=== PATIENT | female | born 1995 | race Hispanic/Latino ===

== ENCOUNTER 2017-08-15 00:51 | Emergency (ER) | payer OTHER, SELFPAY ==
[2017-08-15 02:00] LABS: Absolute Lymphocytes (CBC) 3.1 K/uL (0.7-4.9); Absolute Monocytes 0.7 K/uL (0.1-1.3); Absolute Neutrophil 6.9 K/uL (1.8-8.0); Basophils % 0.8 % (0-1.3); Eosinophils % 1.8 % (0-4.4); Hematocrit 38.9 % (36.0-45.0); Lymphocytes % 28.3 % (15.3-44.8); MCH 28.4 pg (27.0-35.0); MCV 87.4 fL (80-100); MPV 7.4 fL (7.6-11.3); Monocytes % 6.5 % (3.3-12.3); RBC Red Blood Cell Count 4.45 M/uL (3.86-4.86)
[2017-08-15 02:11] LABS: Protime INR 0.99
[2017-08-15 02:18] LABS: Bicarbonate 23 mEq/L (21-31); Glucose Level 104 mg/dL (65-120); Potassium 3.5 mEq/L (3.6-5.0); Sodium Level 140 mEq/L (135-145)
[2017-08-15 02:24] LABS: ALT/SGPT 26 IU/L (10-60); AST/SGOT 29 IU/L (10-42); Albumin 4.4 g/dL (3.2-5.5); Alkaline Phosphatase 113 IU/L (42-121); BUN Blood Urea Nitrogen 13 mg/dL (6-20); Bilirubin Direct 0.1 mg/dL (0-0.2); Bilirubin Total 0.5 mg/dL (0.3-1.2); Protein, Total 8.3 g/dL (6.0-8.3)
[2017-08-15 02:25] LABS: Barbiturates NEGATIVE; Benzodiazepines NEGATIVE; Cocaine NEGATIVE; METHAMPHETAM NEGATIVE; Opiates NEGATIVE; Phencyclidine NEGATIVE; THC Cannibis NEGATIVE
[2017-08-15 02:26] LABS: Alcohol Serum/Plasma 133 mg/dl
[2017-08-15] MEDS ORDERED: LIDOCAINE 1% W/EPI 1:100,000 MDV 50 ML VIAL ONE (02:28)
[2017-08-15] MEDS ORDERED: POTASSIUM 25 MEQ EFFERV TAB ONE (03:56)
[2017-08-15 04:32] LABS: Salicylates Level < 4.0 mg/dl (<30)
[2017-08-15 04:55] LABS: Bicarbonate 24 mEq/L (21-31); Glucose Level 101 mg/dL (65-120); Potassium 3.8 mEq/L (3.6-5.0); Sodium Level 143 mEq/L (135-145)
[2017-08-15 04:57] LABS: BUN Blood Urea Nitrogen 11 mg/dL (6-20)
[2017-08-15 05:05] LABS: Alcohol Serum/Plasma 88 mg/dl
--- NOTE | 2017-08-15 05:42 | EDPHYS ---
Physician Documentation [facility] Name: Camila Milligan Age: 21 yrs Sex: Female : 1995 Arrival Date: 08/15/2017 Time: 00:56 Bed 3 Private MD: ED Physician eCsar Alfred HPI: 08/15 01:30 This 21 yrs old Female presents to ER via Ambulatory with complaints of Wrist cp Injury. 01:30 The patient or guardian reports injury, a laceration, clean. Context: resulted from cp self inflicted. Onset: The symptoms/episode began/occurred just prior to arrival. 01:30 Associated signs and symptoms: Pertinent negatives:. 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 Patient reports she became upset tonight. Denies suicidal or homicidal ideations. EMERGENCY SPECIALIST: 01:53 LMP N/A - control method lp1 Historical: - Allergies: 01:49 No Known Allergies; lp1 - Home Meds: 01:53 Nexplanon implant [Active]; lp1 - PMHx: 01:53 Anxiety; Depression; ADD/ADHD; hypotension; lp1 - PSHx: 01:53 D \T\ C; lp1 - Immunization history:: Last tetanus immunization: up to date. - Social history:: Smoking status: Patient/guardian denies using tobacco. ROS: 01:35 Constitutional: Negative for body aches, chills, fever, poor PO intake. cp 01:35 Eyes: Negative for injury, pain, redness, and discharge, ENT: Negative for injury, cp pain, and discharge, Cardiovascular: Negative for chest pain, palpitations, and edema, Respiratory: Negative for shortness of breath, cough, wheezing, and pleuritic chest pain, Abdomen/GI: Negative for abdominal pain, nausea, vomiting, diarrhea, and constipation. 01:35 Skin: Positive for laceration(s), of the volar surface of left wrist. 01:35 Neuro: Negative for altered mental status, headache, weakness. 01:35 All other systems are negative. Exam: 01:42 Constitutional: The patient appears in no acute distress, alert, awake, non-toxic, well cp developed, well nourished, tearful 01:42 Head/Face: Normocephalic, atraumatic. Eyes: Pupils equal round and reactive to light, cp extra-ocular motions intact. Lids and lashes normal. Conjunctiva and sclera are non-icteric and not injected. Cornea within normal limits. Periorbital areas with no swelling, redness, or edema. ENT: Nares patent. No nasal discharge, no septal abnormalities noted. Tympanic membranes are normal and external auditory canals are clear. Oropharynx with no redness, swelling, or masses, exudates, or evidence of obstruction, uvula midline. Mucous membranes moist. Chest/axilla: Normal chest wall appearance and motion. Nontender with no deformity. No lesions are appreciated. 01:42 Cardiovascular: Rate: tachycardic, Rhythm: regular, Edema: is not appreciated, JVD: is not appreciated. 01:42 Respiratory: the patient does not display signs of respiratory distress, Respirations: normal, no use of accessory muscles, no retractions, no splinting, no tachypnea, labored breathing, is not present, Breath sounds: are clear throughout, no decreased breath sounds, no stridor, no wheezing. 01:42 Abdomen/GI: Inspection: abdomen appears normal, Bowel sounds: active, all quadrants, Palpation: abdomen is soft and non-tender, in all quadrants. 01:42 Back: pain, is absent, ROM is normal. 01:42 Skin: injury, laceration(s), the wound is approximately 4 cm(s), of the volar surface of left wrist, that can be described as clean, linear, with mild bleeding. 01:42 Neuro: Orientation: to person, place \T\ time. Mentation: is normal, Motor: moves all fours, strength is normal, Sensation: no obvious gross deficits, Gait: is steady, at a normal pace, without difficulty. 02:25 ECG was reviewed by the Attending Physician. cp Vital Signs: 01:03 BP 144 / 108; Pulse 107; Resp 20; Pulse Ox 99% on R/A; Weight 68.04 kg; Height 5 ft. 2 aa1 in. (157.48 cm); 01:54 BP 111 / 80 LA Sitting; lp1 02:11 Temp 97.5(O); lp1 04:23 BP 117 / 74 LA Sitting (auto/reg); Pulse 85; Resp 16 S; Pulse Ox 100% on R/A; cc 06:47 BP 109 / 81; Pulse 83; Resp 16; Pulse Ox 99% on R/A; Pain 0/10; lp1 01:03 Body Mass Index 27.44 (68.04 kg, 157.48 cm) aa1 Laceration: 02:52 Wound Repair of 4cm ( 1.6in ) subcutaneous laceration to volar surface of left wrist. cp Linear shaped.. Distal neuro/vascular/tendon intact. Anesthesia: Local anesthetic administered with 3 mls of 1% lidocaine w/ Epi. Wound prep: Moderate cleansing by me, Wound irrigation by me. Skin closed with 1 4-0 Prolene using running sutures. Dressed with Bacitracin, Kerlix. Patient tolerated well. MDM: 01:23 Patient medically screened. cp 02:00 Differential diagnosis: tendon injury, suicidal gesture, simple laceration. cp 03:51 Data reviewed: vital signs, nurses notes, lab test result(s), EKG. cp 08/15 01:26 Order name: Acetaminophen; Complete Time: 05:23 cp 08/15 01:26 Order name: Basic Metabolic Panel; Complete Time: 05:23 cp 08/15 01:26 Order name: CBC with Diff; Complete Time: 02:15 cp 08/15 02:15 Interpretation: Normal except: MCV 87.4; RDW 15.9; MPV 7.4. cp 08/15 01:26 Order name: ETOH Level; Complete Time: 05:23 cp 08/15 01:26 Order name: Hepatic Function; Complete Time: 05:23 cp 08/15 01:26 Order name: PT-INR; Complete Time: 03:14 cp 08/15 01:26 Order name: Ptt, Activated; Complete Time: 03:14 cp 08/15 01:26 Order name: Salicylate; Complete Time: 05:23 cp 08/15 01:26 Order name: Urine Drug Screen; Complete Time: 03:14 cp 08/15 02:10 Order name: Urine Dipstick--Ancillary (enter results) [facility] 08/15 02:10 Order name: Urine --Ancillary (enter results) [facility] 08/15 03:51 Order name: ETOH Level; Complete Time: 05:23 cp 08/15 04:23 Order name: Basic Metabolic Panel; Complete Time: 05:23 EDMS 08/15 01:26 Order name: Urine Test (obtain specimen); Complete Time: 03:06 cp 08/15 01:26 Order name: EKG; Complete Time: 01:27 cp 08/15 01:26 Order name: EKG - Nurse/Tech; Complete Time: 03:06 cp 08/15 01:26 Order name: IV Saline Lock; Complete Time: 02:09 cp 08/15 01:26 Order name: Labs collected and sent; Complete Time: 02:09 cp 08/15 01:26 Order name: Urine Dipstick-Ancillary (obtain specimen); Complete Time: 02:09 cp 08/15 01:26 Order name: Prolene, Sutures; Complete Time: 02:09 cp 08/15 01:26 Order name: Dressing - Wound; Complete Time: 03:06 cp 08/15 01:26 Order name: Gloves, Sterile; Complete Time: 02:09 cp 08/15 01:26 Order name: Setup Suture Tray; Complete Time: 02:08 cp EC:25 Rate is 84 beats/min. Rhythm is regular. OR interval is normal. QRS interval is normal. cp QT interval is normal. T waves are Normal. No ST changes noted. Interpreted by me. Reviewed by me. Administered Medications: 02:48 Drug: Lidocaine-Epinephrine -1%: (1:100,000) 5 ml Volume: 20 ml; Route: Infiltration; lp1 04:15 Drug: Potassium Effervescent Tablet 25 mEq Route: PO; lp1 05:42 Follow up: Response: No adverse reaction lp1 05:41 Drug: Neosporin Ointment 1 application Route: Topical; Site: wound; lp1 05:59 Drug: Ancef 1 grams Route: IVPB; Site: right antecubital; lp1 06:39 Follow up: IV Status: Completed infusion lp1 Disposition: 08/15/17 05:41 Discharged to Home. Impression: Alcohol abuse with intoxication, Major depressive disorder, recurrent, Suicide attempt - upset, arguement. no suicidal thoughts at this time. - Condition is Stable. - Discharge Instructions: Depression, Adult, Laceration Care, Adult, Helping Someone Who is Suicidal, Laceration Care, Adult, [id number], Depression, Adult, [id number]. - Prescriptions for Keflex 500 mg Oral Capsule - take 1 capsule by ORAL route every 6 hours for 7 days; 28 capsule. Motrin IB 200 mg Oral Tablet - take 2 tablet by ORAL route every 6 hours As needed as needed with food; 30 tablet. - Medication Reconciliation Form, Thank You Letter, Antibiotic Education, Prescription Opioid Use form. - Follow up: Private Physician; When: 2 - 3 days; Reason: Recheck today's complaints, Continuance of care, Re-evaluation by your physician. - Problem is new. - Symptoms have improved. Addendum: 08/17/2017 07:14 Co-signature as Attending Physician, Cesar Alfred MD I agree with the assessment and c mayes plan of care. Signatures: Dispatcher [employer] EDOK Page Mari, RN RN aa1 Cesar Alfred MD MD cha Pena, Laura RN RN lp1 Cesar Ramirez PA PA cp Corrections: (The following items were deleted from the chart) 08/15 04:23 04:13 BASIC METABOLIC PANEL+[id number].LAB.BRZ ordered. EDOK EDOK
--- NOTE | 2017-08-15 05:42 | ER ---
Nurse's Notes [facility] Name: Camila Milligan Age: 21 yrs Sex: Female : 1995 Arrival Date: 08/15/2017 Time: 00:56 Bed 3 Private MD: Diagnosis: Alcohol abuse with intoxication;Major depressive disorder, recurrent;Suicide attempt-upset, arguement. no suicidal thoughts at this time Presentation: 08/15 01:03 Presenting complaint: pt presents to ED with laceration to L wrist. Pt crying and aa1 admits to self inflicting her injury but will not release any other information or answer any other questions. Transition of care: patient was not received from another setting of care. Onset of symptoms was August 15, 2017. Care prior to arrival: None. 01:03 Method Of Arrival: Ambulatory aa1 01:03 Acuity: FRANKO 3 aa1 PRIVATE DUTY LPN: 01:53 LMP N/A - control method lp1 Historical: - Allergies: 01:49 No Known Allergies; lp1 - Home Meds: 01:53 Nexplanon implant [Active]; lp1 - PMHx: 01:53 Anxiety; Depression; ADD/ADHD; hypotension; lp1 - PSHx: 01:53 D \\T\\ C; lp1 - Immunization history:: Last tetanus immunization: up to date. - Social history:: Smoking status: Patient/guardian denies using tobacco. Screenin:52 Abuse screen: Denies threats or abuse. Denies injuries from another. Nutritional lp1 screening: No deficits noted. Tuberculosis screening: No symptoms or risk factors identified. 01:55 Fall Risk None identified. lp1 Assessment: 01:15 General: Appears uncomfortable, Behavior is anxious, crying. Pain: Complains of pain in lp1 left wrist Pain currently is 8 out of 10 on a pain scale. Quality of pain is described as burning. Neuro: Level of Consciousness is awake, alert, obeys commands, Oriented to person, place, time, situation. Cardiovascular: Capillary refill < 3 seconds in bilateral fingers toes Patient's skin is warm and dry. Respiratory: Respiratory effort is even, unlabored, Respiratory pattern is regular, symmetrical. 01:15 GI: No signs and/or symptoms were reported involving the gastrointestinal system. : lp1 No signs and/or symptoms were reported regarding the genitourinary system. EENT: No signs and/or symptoms were reported regarding the EENT system. Derm: Wound noted Wound is Laceration to ventral side of wrist. Musculoskeletal: Circulation, motion, and sensation intact. 02:15 Reassessment: Patient appears in no apparent distress at this time. No changes from lp1 previously documented assessment. Patient and/or family updated on plan of care and expected duration. Pain level reassessed. Tech at bedside with patient. General: Behavior is calm. 03:04 Reassessment: Patient resting, eyes closed, respirations unlabored. lp1 04:15 Reassessment: Patient appears in no apparent distress at this time. No changes from lp1 previously documented assessment. Patient and/or family updated on plan of care and expected duration. Pain level reassessed. 05:30 Reassessment: Patient resting, eyes closed, respirations unlabored. lp1 06:30 Reassessment: Patient is alert, oriented x 3, equal unlabored respirations, skin lp1 warm/dry/pink. [place] at bedside. Psych: 01:45 Subjective: Patient's mood is sad, Delusions are denied, Hallucinations are denied lp1 Patient denies harm to others or self; States "I just over reacted, I don't really want to hurt myself"; States having argument with "someone" after drinking a couple beers and got upset. Objective: Patient is cooperative, using poor eye contact, Speech is normal, Affect is appropriate, Patient has mutilated themselves by Patient has laceration to left wrist, states no hx of self mutilation in the past. Interventions: Removed personal items and placed in bag. Patient placed in hospital gown. Searched person for dangerous items. Urine collected and sent for urine drug test. Suicide Risk Assessment: Sad Person Scale: Sex of patient: Female: Score 0 points. Age of patient: Score 1 point if patient 15-34. Depression: Score 1 point if signs of depression are present. Previous Attempt: Score 0 point if patient has not previously attempted suicide. Substance Abuse: Score 0 point if patient does not abuse alcohol or drugs. Rational Thinking: Score 0 point if patient has rational thinking. Social Support: Score 1 point if social support is lacking and/or unavailable. Organized Plan: Score 0 if patient did not have an organized plan in place. Relationship: Score 1 point if patient is , , , or for a single male Chronic Sickness: Score 0 point if patient does not have a chronic illness, debilitating, or severe disorder. TOTAL POINTS: If total points are 3-4, proposed clinical action is close follow-up/consider hospitalization. Safety Checks: Personal items have been removed. Door is open. No visitors are present at this time. Pt denies substance abuse. 06:48 Commitment: [facility] provided list of services to patient. lp1 Vital Signs: 01:03 BP 144 / 108; Pulse 107; Resp 20; Pulse Ox 99% on R/A; Weight 68.04 kg; Height 5 ft. 2 aa1 in. (157.48 cm); 01:54 BP 111 / 80 LA Sitting; lp1 02:11 Temp 97.5(O); lp1 04:23 BP 117 / 74 LA Sitting (auto/reg); Pulse 85; Resp 16 S; Pulse Ox 100% on R/A; cc 06:47 BP 109 / 81; Pulse 83; Resp 16; Pulse Ox 99% on R/A; Pain 0/10; lp1 01:03 Body Mass Index 27.44 (68.04 kg, 157.48 cm) aa1 ED Course: 00:56 Patient arrived in ED. rg2 01:03 Arm band placed on right wrist. Patient placed in an exam room, on a stretcher. aa1 01:04 Triage completed. aa1 01:22 Cesar Ramirez PA is PHCP. cp 01:22 Cesar Alfred MD is Attending Physician. cp 01:46 Mildred Manzanares, MARCELLE is Primary Nurse. lp1 01:54 Patient has correct armband on for positive identification. Call light in reach. Pulse lp1 ox on. NIBP on. 02:00 Safety Checks: Personal items have been removed The door is open or patient has been lp1 placed in a hallway bed/chair. There are no family/friend visitors at this time. 02:00 Inserted saline lock: 22 gauge in right antecubital area, using aseptic technique. By lp1 tech. Rosa 02:15 Safety Checks: Personal items have been removed The door is open or patient has been lp1 placed in a hallway bed/chair. There are no family/friend visitors at this time. 02:30 Safety Checks: Personal items have been removed The door is open or patient has been lp1 placed in a hallway bed/chair. There are no family/friend visitors at this time. 02:45 Safety Checks: Personal items have been removed The door is open or patient has been lp1 placed in a hallway bed/chair. There are no family/friend visitors at this time. 03:00 Safety Checks: Personal items have been removed The door is open or patient has been lp1 placed in a hallway bed/chair. There are no family/friend visitors at this time. 03:01 Assist provider with laceration repair on left wrist that was between 2.6 to 7.5 cm lp1 using sutures. Set up tray. Performed by Cesar JOHNSON. 03:05 Wound care: to laceration located on left wrist was dressed with Neosporin, 4X4s, lp1 Kerlix, By lena Lee. 03:15 Appears to be sleeping. Safety Checks: Personal items have been removed The door is lp1 open or patient has been placed in a hallway bed/chair. There are no family/friend visitors at this time. 03:30 Appears to be sleeping. Safety Checks: Personal items have been removed The door is lp1 open or patient has been placed in a hallway bed/chair. There are no family/friend visitors at this time. 03:45 Safety Checks: Personal items have been removed The door is open or patient has been lp1 placed in a hallway bed/chair. There are no family/friend visitors at this time. 04:00 Safety Checks: Personal items have been removed The door is open or patient has been lp1 placed in a hallway bed/chair. There are no family/friend visitors at this time. 04:15 Safety Checks: Personal items have been removed The door is open or patient has been lp1 placed in a hallway bed/chair. There are no family/friend visitors at this time. 04:30 Safety Checks: Personal items have been removed The door is open or patient has been lp1 placed in a hallway bed/chair. There are no family/friend visitors at this time. 04:45 Safety Checks: Personal items have been removed The door is open or patient has been lp1 placed in a hallway bed/chair. There are no family/friend visitors at this time. 05:00 Safety Checks: Personal items have been removed The door is open or patient has been lp1 placed in a hallway bed/chair. There are no family/friend visitors at this time. 05:15 Safety Checks: Personal items have been removed The door is open or patient has been lp1 placed in a hallway bed/chair. There are no family/friend visitors at this time. 05:30 Appears to be sleeping. Safety Checks: Personal items have been removed The door is lp1 open or patient has been placed in a hallway bed/chair. There are no family/friend visitors at this time. 06:47 IV discontinued, No redness/swelling at site. Pressure dressing applied. lp1 Administered Medications: 02:48 Drug: Lidocaine-Epinephrine -1%: (1:100,000) 5 ml Volume: 20 ml; Route: Infiltration; lp1 04:15 Drug: Potassium Effervescent Tablet 25 mEq Route: PO; lp1 05:42 Follow up: Response: No adverse reaction lp1 05:41 Drug: Neosporin Ointment 1 application Route: Topical; Site: wound; lp1 05:59 Drug: Ancef 1 grams Route: IVPB; Site: right antecubital; lp1 06:39 Follow up: IV Status: Completed infusion lp1 Outcome: 05:41 Discharge ordered by MD. saucedo 06:47 Discharged to home ambulatory, with family. lp1 06:47 Condition: good 06:47 Discharge instructions given to patient, Instructed on discharge instructions, follow up and referral plans. medication usage, wound care, Demonstrated understanding of instructions, follow-up care, medications, wound care, Prescriptions given X 2. 06:49 Patient left the ED. lp1 Signatures: Lucas Pierre rg2 Page Mari, RN RN aa1 Cesar Alfred MD MD cha Christian, Chelsea cc Pena, Laura, RN RN lp1 Cesar Ramirez PA PA cp Corrections: (The following items were deleted from the chart) :52 01:48 General: Appears uncomfortable, Behavior is anxious, crying, lp1 lp1 01:52 01:48 Pain: Complains of pain in left wrist Pain currently is 8 out of 10 on a pain lp1 scale. Quality of pain is described as burning, lp1 :52 01:48 Neuro: Level of Consciousness is awake, alert, obeys commands, Oriented to lp1 person, place, time, situation, lp1 01:52 01:48 Cardiovascular: Capillary refill < 3 seconds in bilateral fingers toes Patient's lp1 skin is warm and dry. lp1 :52 01:48 Respiratory: Respiratory effort is even, unlabored, Respiratory pattern is lp1 regular, symmetrical, lp1 04:39 01:45 Subjective: Patient's mood is sad, Delusions are denied, Hallucinations are lp1 denied Patient denies harm to others; States "I just over reacted, I don't really want to hurt myself" lp1
[2017-08-15 05:54] LABS: Urine Blood TRACE (NEG); Urine Glucose NEGATIVE (NEG); Urine Protein NEGATIVE (NEG)
[2017-08-15] MEDS ORDERED: CEFAZOLIN SODIUM 1 GM/VIAL ONE (06:14)
[2017-08-15] MEDS ORDERED: NA CHLORIDE 0.9% 50 ML IV ONE (06:14)
--- NOTE | 2017-08-16 12:51 | EKG ---
Test Date: 2017-08-15 Test Time: 02:18:17 Accountant Clerk: MEASUREMENT RESULTS: Intervals: Rate: 84 OR: 164 QRSD: 80 QT: 368 QTc: 434 [place]: P: 57 OR: 164 QRS: 45 T: 50 INTERPRETIVE STATEMENTS: Normal sinus rhythm Normal ECG No previous ECG available for comparison Electronically Signed On 08-16-17 12:51:12 CDT by Darek Franklin
== END 2017-08-15 06:49 | disposition home or self-care (01) ==
LOC: ER 00:51
PROC: 0JQH0ZZ Repair Left Lower Arm Subcutaneous Tissue and Fascia, Open Approach (ICD-10-PCS; principal; 2017-08-15)
DX: S61.512A Laceration without foreign body of left wrist, initial encounter (principal); F10.129 Alcohol abuse with intoxication, unspecified; F33.9 Major depressive disorder, recurrent, unspecified; X78.8XXA Intentional self-harm by other sharp object, initial encounter; Y92.009 Unspecified place in unspecified non-institutional (private) residence as the place of occurrence of the external cause
CPT/HCPCS: 36415; 80048; 80076; 80307; 80320; 80329; 81003; 81025; 85025; 85610; 85730; 93005; 96365; 99284; J0690